=== PATIENT | male | born 1990 | race Caucasian/White ===

== ENCOUNTER 2024-01-09 14:50 | Emergency (ER) | payer OTHER ==
[~2024-01-09] VITALS: Ht 190.5 cm; Wt 100.0 kg
[2024-01-09 14:54] VITALS: TEMP 98.2
[2024-01-09 17:40] VITALS: BP 101/64; PULSE 67; RESP 16
== END 2024-01-09 18:03 | disposition home or self-care (01) ==
LOC: EMS 14:51
DX: S93.602A Unspecified sprain of left foot, initial encounter (principal); Z98.890 Other specified postprocedural states; X58.XXXA Exposure to other specified factors, initial encounter; Y93.89 Activity, other specified; Y92.89 Other specified places as the place of occurrence of the external cause; Y99.8 Other external cause status
CPT/HCPCS: 99283